=== PATIENT | female | born 1970 | race Caucasian/White ===

== ENCOUNTER 2020-06-10 17:32 | Inpatient (IN) | payer MEDICAID, OTHER ==
[~2020-06-10] VITALS: Ht 165.1 cm; Wt 96.3 kg
[2020-06-10] MEDS ORDERED: DiphenhydrAMINE HCL 50 MG/ML VIAL IM ONE (18:45)
[2020-06-10] MEDS ORDERED: HALOPERIDOL LACTATE 5 MG/ML VIAL IM ONE (18:45)
[2020-06-10] MEDS ORDERED: LORazepam 2 MG/ML VIAL IM ONE (18:45)
[2020-06-10 19:08] LABS: AMPHET/METH SCREEN,URINE NEGATIVE (NEGATIVE); BARBITURATE SCREEN, URINE NEGATIVE (NEGATIVE); BENZODIAZEPINES SCREEN,URINE POSITIVE (NEGATIVE); CANNABINOID SCREEN,URINE NEGATIVE (NEGATIVE); COCAINE SCREEN,URINE NEGATIVE (NEGATIVE); METHADONE SCREEN, URINE NEGATIVE (NEGATIVE); OPIATE SCREEN,URINE NEGATIVE (NEGATIVE)
[2020-06-10 19:10] LABS: PHENCYCLIDINE SCREEN,URINE NEGATIVE (NEGATIVE)
[2020-06-10 19:48] LABS: BASOPHILS % (AUTO) 0.4 % (0.0-2.0); EOSINOPHILS % (AUTO) 0.7 % (1.0-6.0); HEMATOCRIT 41.2 % (36-46); HEMOGLOBIN 13.1 g/dL (12.0-16.0); LYMPHOCYTES # (AUTO) 1.3 K/uL (1.0-4.8); LYMPHOCYTES % (AUTO) 13.7 % (22.0-44.0); MEAN CORPUSCULAR HGB CONC 31.8 G/dL (31.0-37.0); MEAN CORPUSCULAR VOLUME 88 fL (80-100); MONOCYTES # (AUTO) 0.6 K/uL (0.1-1.0); MONOCYTES % (AUTO) 6.1 % (2.0-9.0); NEUTROPHILS # (AUTO) 7.5 K/uL (1.8-7.7); NEUTROPHILS % (AUTO) 79.1 % (40.0-70.0); PLATELET COUNT (AUTO) 345 K/uL (150-450); RED BLOOD CELL COUNT(AUTO) 4.68 MIL/uL (4.00-5.20); RED CELL DISTRIBUTION WIDTH 14.2 % (11.5-14.5)
[2020-06-10 20:04] LABS: ANION GAP 14 mmol/L (8-16); CALCIUM, TOTAL 8.4 mg/dL (8.8-10.5); CARBON DIOXIDE 20 mmol/L (22-29); CHLORIDE 105 mmol/L (98-107); CREATININE 0.92 mg/dL (0.60-1.30); GLOMERULAR FILTR. RATE CALC > 60 mL/min (>60); GLUCOSE,RANDOM 110 mg/dL (70-110); POTASSIUM 3.6 mmol/L (3.5-5.1); SODIUM SERUM 139 mmol/L (136-145); UREA NITROGEN, BLOOD 8 mg/dL (7-18)
[2020-06-10 20:09] LABS: ALANINE AMINOTRANSFERASE 30 U/L (12-78); ALBUMIN 3.4 g/dL (3.4-5.0); ALKALINE PHOSPHATASE 93 U/L (46-116); ASPARTATE AMINOTRANSFERASE 18 U/L (15-37); BILIRUBIN,TOTAL 0.4 mg/dL (0.1-1.0); TOTAL PROTEIN, SERUM 7.5 g/dL (6.4-8.2)
[2020-06-10] MEDS ORDERED: MAGNESIUM SULFATE 2 GM, MVI, ADULT NO.1 WITH VIT K 10 ML, THIAMINE 100 MG, FOLIC ACID 1... IV ONE ×5 (20:30)
[2020-06-10] MEDS ORDERED: MAG HYDROX/AL HYDROX/SIMETH ES 30 ML SUSPENSION UDCUP PO PRN (21:00)
[2020-06-10] MEDS ORDERED: LOPERAMIDE HCL 2 MG CAPSULE PO PRN ×2 (21:00)
[2020-06-10] MEDS ORDERED: OLANZapine 5 MG RAPDIS TABLET PO PRN (21:00)
[2020-06-10] MEDS ORDERED: ZOLPIDEM TARTRATE 10 MG TABLET PO PRN (21:00)
[2020-06-10] MEDS ORDERED: ACETAMINOPHEN 325 MG TABLET PO PRN (21:00)
[2020-06-10] MEDS ORDERED: GuaiFENesin/D-METHORPHAN [SUGAR-FREE] 200-20MG/10 ML SYRUP UDCUP PO PRN (21:00)
[2020-06-10] MEDS ORDERED: PROMETHAZINE HCL 25 MG TABLET PO PRN (21:00)
[2020-06-10] MEDS ORDERED: CYANOCOBALAMIN 1,000 MCG/ML VIAL IM ONE (21:00)
[2020-06-10] MEDS ORDERED: HydrOXYzine PAMOATE 50 MG CAPSULE PO PRN (21:00)
[2020-06-10] MEDS ORDERED: MAGNESIUM HYDROXIDE SUSPENSION 30 ML UDCUP PO PRN (21:00)
[2020-06-10] MEDS ORDERED: TUBERCULIN, PURIFIED PROTEIN DERIVATIVE 5 TU/0.1 ML SYRINGE ID ONE (21:00)
[2020-06-10] MEDS ORDERED: DIAZEPAM 10 MG TABLET PO PRN (21:00)
[2020-06-10] MEDS: DIVALPROEX SODIUM 500 MG ER TABLET PO SCH (22:47)
[2020-06-10] MEDS: THIAMINE 100 MG TABLET PO SCH (22:47)
[2020-06-11] VITALS (7 sets, daily range): BP systolic 111–145; BP diastolic 57–93
[2020-06-11] MEDS ORDERED: DIAZEPAM 10 MG TABLET PO PRN (07:00)
[2020-06-11 08:15] LABS: HEMOGLOBIN A1C 5.8 % (3.8-5.6)
[2020-06-11 08:33] LABS: FREE T4 (FREE THYROXINE) 1.39 ng/dL (0.76-1.46); THYROID STIMULATING HORMONE 1.21 uIU/mL (0.36-3.74)
[2020-06-11] MEDS: DULoxetine HCL 20 MG CAPSULE PO SCH (10:10)
[2020-06-11] MEDS: MULTIVITAMINS WITH MINERALS, THERAPEUTIC TABLET PO SCH (10:10)
[2020-06-11] MEDS: NALTREXONE HCL 50 MG TABLET PO SCH (10:10)
[2020-06-11] MEDS: FOLIC ACID 1 MG TABLET PO SCH (10:10)
[2020-06-11] MEDS: THIAMINE 100 MG TABLET PO SCH ×2 (10:10→17:31)
[2020-06-11] MEDS: DIAZEPAM 10 MG TABLET PO SCH ×4 (10:11→21:19)
[2020-06-11] MEDS ORDERED: LEVO150 PO (12:34)
[2020-06-11] MEDS: RIVAROXABAN 10 MG TABLET PO SCH (17:31)
[2020-06-11] MEDS: BACITRACIN 28.4 GM OINTMENT TP SCH (17:32)
[2020-06-11] MEDS: DIVALPROEX SODIUM 500 MG ER TABLET PO SCH (21:19)
[2020-06-12 05:49] VITALS: BP 127/85
[2020-06-12] MEDS: LEVOTHYROXINE SODIUM 150 MCG TABLET PO SCH (06:37)
[2020-06-12 08:00] VITALS: BP 129/77
[2020-06-12 09:39] VITALS: BP 129/77
[2020-06-12] MEDS: THIAMINE 100 MG TABLET PO SCH ×2 (10:51→16:13)
[2020-06-12] MEDS: NALTREXONE HCL 50 MG TABLET PO SCH (10:51)
[2020-06-12] MEDS: DIAZEPAM 10 MG TABLET PO SCH ×3 (10:51→16:13)
[2020-06-12] MEDS: MULTIVITAMINS WITH MINERALS, THERAPEUTIC TABLET PO SCH (10:51)
[2020-06-12] MEDS: BACITRACIN 28.4 GM OINTMENT TP SCH ×2 (10:51→16:13)
[2020-06-12] MEDS: DULoxetine HCL 20 MG CAPSULE PO SCH (10:51)
[2020-06-12] MEDS: FOLIC ACID 1 MG TABLET PO SCH (10:51)
[2020-06-12 13:00] VITALS: BP 136/86
[2020-06-12 16:55] VITALS: BP 107/63
[2020-06-12] MEDS: RIVAROXABAN 10 MG TABLET PO SCH (17:27)
[2020-06-12] MEDS ORDERED: NALT50TA PO (19:10)
[2020-06-12] MEDS ORDERED: DULO20CA27 PO (19:10)
[2020-06-12] MEDS ORDERED: DIVA-80 PO (19:10)
[2020-06-12] MEDS ORDERED: DIAZEPAM 10 MG TABLET PO PRN (19:15)
[2020-06-12] MEDS: DIVALPROEX SODIUM 500 MG ER TABLET PO SCH (20:29)
[2020-06-12] MEDS ORDERED: ZOLPIDEM TARTRATE 10 MG TABLET PO SCH (21:00)
[2020-06-13] MEDS: LEVOTHYROXINE SODIUM 150 MCG TABLET PO SCH (06:37)
[2020-06-13] MEDS ORDERED: DIAZEPAM 5 MG TABLET PO PRN (07:00)
[2020-06-13 09:00] VITALS: BP 133/81
[2020-06-13] MEDS ORDERED: DIAZEPAM 5 MG TABLET PO SCH (09:00)
[2020-06-13] MEDS: DULoxetine HCL 20 MG CAPSULE PO SCH (10:26)
[2020-06-13] MEDS: MULTIVITAMINS WITH MINERALS, THERAPEUTIC TABLET PO SCH (10:26)
[2020-06-13] MEDS: NALTREXONE HCL 50 MG TABLET PO SCH (10:26)
[2020-06-13] MEDS: FOLIC ACID 1 MG TABLET PO SCH (10:26)
[2020-06-13] MEDS: BACITRACIN 28.4 GM OINTMENT TP SCH (10:27)
[2020-06-13] MEDS: THIAMINE 100 MG TABLET PO SCH (10:27)
[2020-06-13] MEDS ORDERED: RIVA20TA PO (10:38)
[2020-06-14] MEDS ORDERED: DIAZEPAM 5 MG TABLET PO PRN (07:00)
== END 2020-06-13 13:30 | disposition home or self-care (01) | DRG 751 ==
LOC: EMS 17:35 → 3EI 21:02
PROVIDERS: ADMIT Psychiatry & Neurology Psychiatry; ATTEND Psychiatry & Neurology Psychiatry
DX: F33.2 Major depressive disorder, recurrent severe without psychotic features (principal); S50.812A Abrasion of left forearm, initial encounter; X58.XXXA Exposure to other specified factors, initial encounter; Y93.89 Activity, other specified; Y92.89 Other specified places as the place of occurrence of the external cause; Y99.8 Other external cause status; Z86.718 Personal history of other venous thrombosis and embolism; E03.9 Hypothyroidism, unspecified; F17.200 Nicotine dependence, unspecified, uncomplicated; Z79.01 Long term (current) use of anticoagulants; F10.229 Alcohol dependence with intoxication, unspecified; Y90.9 Presence of alcohol in blood, level not specified; R56.9 Unspecified convulsions
CPT/HCPCS: 83036; 84439; 84443; 86592; 99291; G0480; J1200; J1630; J2060; J3411; J3420; J3475; J3490; J7030